=== PATIENT | female | born 1950 | race Caucasian/White ===

== ENCOUNTER 2018-02-17 11:10 | Emergency (ER) | payer MEDICARE ==
[~2018-02-17] VITALS: Ht 160 cm; Wt 65.0 kg
[2018-02-17 13:23] VITALS: BP 184/95
== END 2018-02-17 13:25 | disposition home or self-care (01) ==
LOC: ER 11:11
DX: S06.0X1A Concussion with loss of consciousness of 30 minutes or less, initial encounter (principal); Z88.6 Allergy status to analgesic agent; Z88.0 Allergy status to penicillin; W22.8XXA Striking against or struck by other objects, initial encounter; Y93.89 Activity, other specified; Y92.89 Other specified places as the place of occurrence of the external cause; Y99.8 Other external cause status
CPT/HCPCS: 70450; 99284

== ENCOUNTER 2021-06-28 05:33 | Inpatient (IN) | payer OTHER ==
[2021-06-19 11:23] LABS: BASOPHILS # (AUTO) 0.1 X10'3 (0-0.2); BASOPHILS % (AUTO) 1.1 % (0-1); EOSINOPHILS # (AUTO) 0.1 X10'3 (0-0.9); LYMPHOCYTES # (AUTO) 1.9 X10'3 (1.1-4.8); LYMPHOCYTES % (AUTO) 33.4 % (21-51); MEAN CORPUSCULAR HEMOGLOBIN 29.9 PG (27.0-31.0); MEAN CORPUSCULAR HGB CONC 33.2 g/dL (33.0-36.5); MEAN CORPUSCULAR VOLUME 90.1 FL (78-98); MEAN PLATELET VOLUME 8.5 FL (7.4-10.4); MONOCYTES # (AUTO) 0.4 X10'3 (0-0.9); MONOCYTES % (AUTO) 7.1 % (2-12); NEUTROPHILS # (AUTO) 3.2 X10'3 (1.8-7.7); NEUTROPHILS % (AUTO) 56.4 % (42-75); PRE OP HEMATOCRIT 41.8 % (35.0-45.0); PRE OP HEMOGLOBIN 13.9 g/dL (12.0-16.0); PRE OP PLATELET COUNT 274 X10'3 (140-440); RED BLOOD COUNT 4.63 X10'6 (4.20-5.60); RED CELL DISTRIBUTION WIDTH 13.8 % (11.5-14.5)
[2021-06-19 11:42] LABS: ALBUMIN 3.8 G/DL (3.4-5.0); ALBUMIN/GLOBULIN RATIO 1.1 (1.1-1.5); ALKALINE PHOSPHATASE 65 IU/L (46-116); BLOOD UREA NITROGEN 13 MG/DL (7-18); CALCIUM 9.4 MG/DL (8.5-10.1); CHLORIDE 105 MMOL/L (99-107); CREATININE 0.62 MG/DL (0.40-0.90); PRE OP ALT 27 U/L (30-65); PRE OP ANION GAP 9 (8-16); PRE OP AST 19 U/L (10-37); PRE OP BILIRUB, TOTAL 0.7 MG/DL (0.0-1.0); PRE OP GLUCOSE 107 MG/DL (70-104); PRE OP POTASSIUM 4.2 MMOL/L (3.4-5.1); PRE OP SODIUM 141 MMOL/L (135-145); TOTAL CARBON DIOXIDE 27.2 MMOL/L (24-32); TOTAL PROTEIN 7.4 G/DL (6.4-8.2); eGFR > 90 ML/MIN
[2021-06-19 11:47] LABS: CLARITY,URINE CLEAR (Clear); GLUCOSE, URINE NEGATIVE (Neg); KETONES,URINE NEGATIVE (Neg); LEUKOCYTE ESTERASE ,URINE NEGATIVE (Neg); NITRITES, URINE NEGATIVE (Neg); OCCULT BLOOD,URINE TRACE-INTACT (Neg); PH,URINE 6.5 (4.8-8.0); PROTEIN,URINE NEGATIVE (Neg); UROBILINOGEN,URINE 0.2 E.U/dL (0.2-1.0)
[2021-06-19 11:53] LABS: COLOR,URINE STRAW (Yellow); UA COLLECTION TYPE CLN CATCH MIDSTREAM
[2021-06-19 11:54] LABS: BACTERIA,URINE NONE SEEN /HPF (Neg); MUCUS STRANDS NONE SEEN /LPF (Neg); RBC,URINE NONE SEEN /HPF (0-2); SQUAMOUS EPITHELIAL CELL,UR FEW /LPF (FEW); WBC,URINE 0-4 /HPF (0-4)
[2021-06-28] VITALS (10 sets, daily range): BP systolic 130–157; BP diastolic 59–87
[~2021-06-28] VITALS: Ht 157.5 cm; Wt 72.4 kg
[~2021-06-28 05:33] MED LIST: ASPI81TA52 PO; CELE-193 PO; DIPH-681 PO; DOCUMENT DATE & TIME OF BETA-BLOCKER PO ONE; IBUP1CAP11 PO; PROP20TA6 PO; VALA10002 PO; ZOLP5TAB8 PO; cefazolin/dext.iso 2gm/50ml IV ONE; famotidine 20mg tablet PO ONE; tranexamic acid inj. 1,000 MG in 0.7% saline 100 ML PMX IV ONE; vancomycin 1,500 MG in NS 300ml IV soln IV ONE
--- NOTE | 2021-06-28 05:40 | NUR ---
CMS WITHIN NORMAL LIMITS, BILATERAL PEDAL AND RADIAL PULSES STRONG AND PALPABLE. Addendum: 06/28/21 at 0857 by Yoon Medeiros RN Amended: Links added.
[2021-06-28] MEDS: ringers solution, lacted 1,000 ML IV SCH (06:27)
[2021-06-28] MEDS ORDERED: vancomycin 1,000mg inj ONE (07:01)
[2021-06-28] MEDS ORDERED: fentaNYL /PF 50mcg/ml 5ml ampule ONE (07:31)
[2021-06-28] MEDS ORDERED: sevoflurane 250ml liquid IH ONE (07:31)
[2021-06-28] MEDS ORDERED: ondansetron/PF 4mg/2ml inj ONE (07:31)
[2021-06-28] MEDS ORDERED: midazolam 1 mg/ML 2ml injection ONE (07:31)
[2021-06-28] MEDS ORDERED: acetaminophen 1,000mg/100ml IV 100 ML IV PRN (08:45)
[2021-06-28] MEDS ORDERED: ringers solution, lacted 1,000 ML IV SCH (08:45)
[2021-06-28] MEDS ORDERED: hydrALAZINE 20mg/ml inj. IV PRN (08:45)
[2021-06-28] MEDS ORDERED: ondansetron/PF 4mg/2ml inj IV PRN ×2 (08:45→10:45)
[2021-06-28] MEDS ORDERED: morphine 4 MG/ML inj SYRINge IV PRN (08:45)
[2021-06-28] MEDS ORDERED: meperidine/PF 25mg/ml syringe IV PRN ×3 (08:45)
[2021-06-28] MEDS ORDERED: proCHLORperazine 10 MG/2 ml inj IV PRN (08:45)
[2021-06-28] MEDS ORDERED: labetalol 20mg/4ml (5mg/ml) syringe IV PRN (08:45)
[2021-06-28] MEDS ORDERED: morphine 2 MG/ML inj. syringe IV PRN (08:45)
[2021-06-28] MEDS ORDERED: ROPIVAcaine 0.2% (10 MG/5 ML) BOLUS INJECTION INTERSCALE PRN (08:45)
[2021-06-28] MEDS ORDERED: glycopyrrolate 0.2mg/ml inj ONE (10:06)
[2021-06-28] MEDS ORDERED: ROPIVAcaine 0.5% (5mg/ml) 30ml vial ONE (10:06)
[2021-06-28] MEDS ORDERED: neostigmine methylsulfate 1 MG/ML 10ml vial ONE (10:06)
[2021-06-28] MEDS ORDERED: ePHEDrine 50MG/ML INJ. ONE (10:06)
[2021-06-28] MEDS ORDERED: rocuronium 10mg/ml inj IV ONE (10:07)
[2021-06-28] MEDS ORDERED: LIDOcaine 1%/PF 5ML 10 MG/ML VIAL ONE (10:07)
[2021-06-28] MEDS ORDERED: 0.9 % SODIUM CHLORIDE 10 ML VIAL ONE (10:07)
[2021-06-28] MEDS ORDERED: propofol inj 20 ML IV ONE (10:07)
[2021-06-28] MEDS ORDERED: LIDOcaine 2% (20mg/ml) 5ml vial ONE (10:07)
--- NOTE | 2021-06-28 10:19 | NUR ---
Received from OR via ORTHO BED , accompanied by Anesthesiologist GAVINO and report given by Anesthesiolgist. PATIENT WITH 20G PIV IN LEFT HAND RUNNING LR AT 100. DENIES PAIN TO RIGHT SHOULDER. ON Q PUMP SITE PRESENT AND IS CDI. SHOULDER WRAP AND POWDER PACK IN PLACE. PATIENT WITH + RADIAL PULSE PRESENT.SCDS DONNED AND VSS. Addendum: 06/28/21 at 1027 by Jonathan Deng RN, RN Amended: Links added.
[2021-06-28] MEDS: ROPIVAcaine 0.2%/PF PUMP/bolus 545 ML INTERSCALE SCH (10:38)
[2021-06-28] MEDS ORDERED: acetaminophen 325mg tablet PO PRN (10:45)
[2021-06-28] MEDS ORDERED: HYDROmorphone inj. 0.5 MG/0.5 ML DISP.SYRIN IV PRN (10:45)
[2021-06-28] MEDS ORDERED: diphenhydrAMINE 25mg capsule PO PRN ×3 (10:45→11:35)
[2021-06-28] MEDS ORDERED: HYDROmorphone 1 mg/ml syringe IV PRN (10:45)
[2021-06-28] MEDS ORDERED: bisacodyl 10mg suppository rectal RC PRN (10:45)
[2021-06-28] MEDS ORDERED: magnesium hydroxide 30ml (MOM) UD suspension PO PRN (10:45)
[2021-06-28] MEDS: potassium cl 20mEq in 1/2 NS 1,000 ML IV SCH (10:45)
[2021-06-28] MEDS ORDERED: oxyCODONE IR 5mg (immed. release) tablet PO PRN (10:45)
[2021-06-28] MEDS ORDERED: zolpidem 5mg tablet PO PRN (11:35)
--- NOTE | 2021-06-28 11:39 | NUR ---
Report called to receiving nurse. Transferred via ORTHO BED WITH GLASSES ONLY Belongings . Special Issues communicated to receiving nurse MARICRUZ BIANCHI.MARICRUZ PRESENT TO ACCEPT PATIENT AND ASSESS DRESSING TO SHOULDER. VSS. DENIES PAIN. ON 3L O2 VIA NASAL CANNULA. PATIENT IN STABLE CONDITION AND DENIES PAIN AT THIS TIME. CARE ASSUMED BY MARICRUZ BIANCHI. Addendum: 06/28/21 at 1155 by Jonathan Deng RN RN Amended: Links added.
[2021-06-28] MEDS ORDERED: valacyclovir 500mg tablet PO PRN (11:40)
[2021-06-28] MEDS: acetaminophen 325mg tablet PO SCH ×2 (13:08→20:06)
[2021-06-28] MEDS: gabapentin 300mg capsule PO SCH ×2 (13:08→20:10)
[2021-06-28] MEDS ORDERED: tranexamic acid inj. 730 MG in normal saline 100ml IV soln 92.7 ML IV ONE (14:00)
[2021-06-28] MEDS: oxyCODONE IR 5mg (immed. release) tablet PO PRN ×3 (14:57→21:54)
[2021-06-28] MEDS: ceFAZolin/D5W- 1GM premix 50 ML IV SCH ×2 (15:30→23:31)
--- NOTE | 2021-06-28 18:38 | NUR ---
Problems reprioritized. Patient report given, questions answered & plan of care reviewed with Rod BIANCHI.
[2021-06-28] MEDS ORDERED: vancomycin/NS 1 GM ADD-VANTAGE 250 ML IV SCH (20:00)
[2021-06-28] MEDS: sennosides 8.6mg tablet PO SCH ×2 (20:00→20:09)
[2021-06-28] MEDS: celeCOXIB 100mg capsule PO SCH (20:05)
[2021-06-28] MEDS: propranolol 10mg tablet PO SCH (20:06)
[2021-06-29] VITALS: BP 120/54
[2021-06-29] MEDS: potassium cl 20mEq in 1/2 NS 1,000 ML IV SCH ×3 (01:17→09:44)
[2021-06-29] MEDS: acetaminophen 325mg tablet PO SCH ×4 (01:19→21:05)
--- NOTE | 2021-06-29 02:22 | NUR ---
Pt c/o nausea but is refusing Zofran at this time. Thinks her nausea is due to not eating and wanted some applesauce to see if that helped. Told her to hit call light if she changes her mind and would like some Zofran she said "Ok".
[2021-06-29 06:07] LABS: BASOPHILS % (AUTO) 0.3 % (0-1); EOSINOPHILS % (AUTO) 0.1 % (0-6); HEMATOCRIT 33.9 % (35.0-45.0); HEMOGLOBIN 11.2 g/dl (12.0-16.0); LYMPHOCYTES # (AUTO) 1.2 X10'3 (1.1-4.8); LYMPHOCYTES % (AUTO) 10.7 % (21-51); MEAN CORPUSCULAR HEMOGLOBIN 30.1 PG (27.0-31.0); MEAN CORPUSCULAR HGB CONC 33.2 g/dL (33.0-36.5); MEAN CORPUSCULAR VOLUME 90.7 FL (78-98); MEAN PLATELET VOLUME 7.7 FL (7.4-10.4); MONOCYTES # (AUTO) 0.9 X10'3 (0-0.9); NEUTROPHILS # (AUTO) 8.9 X10'3 (1.8-7.7); NEUTROPHILS % (AUTO) 80.9 % (42-75); PLATELET COUNT 214 X10'3 (140-440); RED BLOOD COUNT 3.73 X10'6 (4.20-5.60); RED CELL DISTRIBUTION WIDTH 13.4 % (11.5-14.5)
[2021-06-29 06:32] LABS: ANION GAP 10 (8-16); CHLORIDE 103 MMOL/L (99-107); POTASSIUM 4.4 MMOL/L (3.5-5.1); SODIUM 137 MMOL/L (135-145); TOTAL CARBON DIOXIDE 24.3 MMOL/L (24-32)
--- NOTE | 2021-06-29 06:54 | NUR ---
Resident observed in stable condition, report given to TASH Wilson, for continuation of care.
[2021-06-29] MEDS: celeCOXIB 100mg capsule PO SCH ×2 (07:28→21:01)
[2021-06-29] MEDS: aspirin 325mg tablet PO SCH (07:29)
[2021-06-29] MEDS: gabapentin 300mg capsule PO SCH (07:30)
[2021-06-29] MEDS: propranolol 10mg tablet PO SCH ×2 (07:30→20:00)
[2021-06-29 08:00] VITALS: BP 133/58
[2021-06-29] MEDS ORDERED: aspirin 81mg, enteric-coated 1 TAB TABLET.DR PO SCH (08:00)
[2021-06-29 12:00] VITALS: BP 98/76
[2021-06-29] MEDS ORDERED: HYDROcodone/acetaminophen 10/325mg tab PO PRN ×2 (12:35)
[2021-06-29 13:39] LABS: CLARITY,URINE CLEAR (Clear); COLOR,URINE YELLOW (Yellow); GLUCOSE, URINE NEGATIVE (Neg); KETONES,URINE 15 mg/dl (Neg); LEUKOCYTE ESTERASE ,URINE NEGATIVE (Neg); NITRITES, URINE NEGATIVE (Neg); OCCULT BLOOD,URINE SMALL (Neg); PROTEIN,URINE NEGATIVE (Neg); UROBILINOGEN,URINE 0.2 E.U/dL (0.2-1.0)
[2021-06-29 13:44] LABS: UA COLLECTION TYPE CLN CATCH MIDSTREAM
[2021-06-29 13:45] LABS: BACTERIA,URINE NONE SEEN /HPF (Neg); MUCUS STRANDS FEW /LPF (Neg); SQUAMOUS EPITHELIAL CELL,UR FEW /LPF (FEW); WBC,URINE 0-4 /HPF (0-4)
[2021-06-29] MEDS: oxyCODONE IR 5mg (immed. release) tablet PO PRN (19:09)
[2021-06-29 20:00] VITALS: BP 138/69
[2021-06-29] MEDS ORDERED: celeCOXIB 100mg capsule PO SCH (20:00)
[2021-06-29 21:00] VITALS: BP 116/57
[2021-06-29] MEDS: sennosides 8.6mg tablet PO SCH (21:08)
[2021-06-29] MEDS: ringers solution, lacted 1,000 ML IV SCH (21:24)
[2021-06-30] VITALS: BP 94/46
[2021-06-30 00:30] VITALS: BP 115/58
[2021-06-30] MEDS: acetaminophen 325mg tablet PO SCH ×2 (02:00→07:12)
[2021-06-30 06:31] LABS: BASOPHILS % (AUTO) 0.3 % (0-1); EOSINOPHILS % (AUTO) 0.5 % (0-6); HEMATOCRIT 35.2 % (35.0-45.0); HEMOGLOBIN 11.7 g/dl (12.0-16.0); LYMPHOCYTES # (AUTO) 1.7 X10'3 (1.1-4.8); LYMPHOCYTES % (AUTO) 18.8 % (21-51); MEAN CORPUSCULAR HGB CONC 33.3 g/dL (33.0-36.5); MEAN CORPUSCULAR VOLUME 90.2 FL (78-98); MEAN PLATELET VOLUME 8.3 FL (7.4-10.4); MONOCYTES # (AUTO) 1.1 X10'3 (0-0.9); MONOCYTES % (AUTO) 12.1 % (2-12); NEUTROPHILS # (AUTO) 6.1 X10'3 (1.8-7.7); NEUTROPHILS % (AUTO) 68.3 % (42-75); PLATELET COUNT 197 X10'3 (140-440); RED BLOOD COUNT 3.91 X10'6 (4.20-5.60); RED CELL DISTRIBUTION WIDTH 13.7 % (11.5-14.5)
[2021-06-30] MEDS: celeCOXIB 100mg capsule PO SCH (07:11)
[2021-06-30] MEDS: propranolol 10mg tablet PO SCH (07:13)
[2021-06-30] MEDS: oxyCODONE IR 5mg (immed. release) tablet PO PRN (07:13)
[2021-06-30 08:00] VITALS: BP 162/70
[2021-06-30] MEDS: ROPIVAcaine 0.2%/PF PUMP/bolus 545 ML INTERSCALE SCH (08:45)
[2021-06-30] MEDS: aspirin 325mg tablet PO SCH (08:58)
[2021-06-30] MEDS ORDERED: acetaminophen 325mg tablet PO PRN (10:45)
[2021-06-30] MEDS ORDERED: ASPI-1 PO (12:22)
[2021-06-30] MEDS ORDERED: OXYC-658 PO (12:22)
--- NOTE | 2021-06-30 14:19 | NUR ---
Discharge paperwork reviewed with patient. Surgical care reviewed with patient and and bedside. IV removed, catheter tip intact. OnQ pump sheet sent home. Patient free from injuries.
== END 2021-06-30 14:38 | disposition home or self-care (01) | DRG 483 ==
LOC: PAS 05:33 → EDSTATUS 07:30 → PAS 10:54 → SUR 3N 10:54 → UNDOFXSDCSVC 06-30 10:54 → SUR 3N 06-30 14:38 → PAS 06-30 14:38
PROVIDERS: ADMIT Orthopaedic Surgery; ATTEND Orthopaedic Surgery
PROC: 3E0T3BZ Introduction of Anesthetic Agent into Peripheral Nerves and Plexi, Percutaneous Approach (ICD-10-PCS; 2021-06-28)
PROC: 0RRJ00Z Replacement of Right Shoulder Joint with Reverse Ball and Socket Synthetic Substitute, Open Approach (ICD-10-PCS; principal; 2021-06-28 07:31)
DX: M19.011 Primary osteoarthritis, right shoulder (principal); Z79.899 Other long term (current) drug therapy
CPT/HCPCS: 23472; Z7506; Z7508; 36415; 73020; 76942; 80051; 80053; 81001; 82948; 85025; 87081; 93005; 97530; A4565; A4618; A7000; C1776; G0378; J0690; J1170; J2250; J2405; J2704; J2710; J2795; J3010; J3370; J3480; J3490; J7040; J7120; U0003; U0005

== ENCOUNTER 2024-11-10 12:02 | Emergency (ER) | payer MEDICARE, OTHER ==
[~2024-11-10] VITALS: Ht 157.5 cm; Wt 56.2 kg
[~2024-11-10 12:02] MED LIST changes: +ASPI-1 PO; -ASPI81TA52 PO; -DOCUMENT DATE & TIME OF BETA-BLOCKER PO ONE; +OXYC-658 PO; -cefazolin/dext.iso 2gm/50ml IV ONE; -famotidine 20mg tablet PO ONE; -tranexamic acid inj. 1,000 MG in 0.7% saline 100 ML PMX IV ONE; -vancomycin 1,500 MG in NS 300ml IV soln IV ONE
[2024-11-10 12:12] VITALS: TEMP 98.7
[2024-11-10 12:52] LABS: URINE HCG NEGATIVE (NEG)
[2024-11-10 12:53] LABS: LEUKOCYTE ESTERASE ,URINE NEGATIVE (Neg); NITRITES, URINE NEGATIVE (Neg); OCCULT BLOOD,URINE NEGATIVE (Neg)
[2024-11-10 13:00] LABS: UA COLLECTION TYPE CLN CATCH MIDSTREAM
[2024-11-10 13:02] LABS: SQUAMOUS EPITHELIAL CELL,UR FEW /LPF (FEW)
[2024-11-10 13:03] LABS: MEAN PLATELET VOLUME 8.6 FL (7.4-10.4); RED CELL DISTRIBUTION WIDTH 13.2 % (11.5-14.5)
[2024-11-10 13:15] LABS: CREATININE 1.01 MG/DL (0.40-0.90); TOTAL CARBON DIOXIDE 33.7 MMOL/L (24-32); eCRCL 37 ML/MIN; eGFR 53 ML/MIN
[2024-11-10] MEDS: normal saline 1000ML IV soln IVB ONE (14:15)
--- NOTE | 2024-11-10 14:21 | Physician Documentation ---
History of Present Illness ~ Chief Complaint: Abdominal Pain Stated Complaint: BLADDER PAIN Time Seen by MD: 13:54 Mode of Arrival: POV, Ambulatory HPI This 74-year-old female presents to the ED with a complaint of recurrent cystitis and bladder cramping today. Says she has had subclinical fevers states that she has been taking baking soda to help with her cystitis and lots of water. Says that he does feel that she can empty her bladder. Adds that she has been diagnosed with chronic kidney disease to chronic Advil. Patient complains about bladder pain which she describes as having a spasm like nature. Day of Onset: Nov 10, 2024 Medication Reconciliation Allergies: Coded Allergies: Penicillins (Verified Allergy, Unknown, CHILHOOD ALLERGY, 11/10/24) codeine (Verified Allergy, Unknown, NAUSEA/VOMITING, 11/10/24) Scheduled Aspirin (Aspirin), 1 TAB PO Q24H@0830 Celecoxib* (Celebrex*), 200 MG PO BID, (Reported) Ibuprofen/Diphenhydramine HCl (Ibuprofen Pm Softgel), 1 CAPSULE PO QPM, (Reported) Propranolol Hcl (Propranolol Hcl), 1 TAB PO Q12H, (Reported) Scheduled PRN Diphenhydramine Hcl (Benadryl), 25 MG PO DAILY PRN for allergies, (Reported) Oxycodone Hcl IR* (Oxycodone IR*), 1-2 TAB PO Q4H PRN for pain Valacyclovir HCl (Valtrex), 1 TAB PO DAILY PRN for COLD SORE, (Reported) Zolpidem Tartrate* (Ambien*), 10 MG PO HS PRN for INSOMNIA, (Reported) Past Medical History Past Medical History: Cervical Cancer/Dysplasia Past Surgical History: noncontributory Alcohol Use: None Drug Use: none Lives In: Home Occupation: retired Review of Systems All Other Systems at this time: Reviewed and Negative ROS As stated above in the HPI, otherwise all systems are reviewed and negative. Physical Exam Vital Signs: Temperature: 98.7, Source: Temporal, Heart Rate: 90, Respiratory Rate: 18, BP: 139/91, Pulse Oximetry: 97, Weight: 56.200 Oxygen Flow Rate: 0 Physical Exam General: Alert, no apparent distress. Cardiovascular: Regular rate and rhythm, no murmurs. Gastrointestinal: Soft, nontender, nondistended. Bowels sounds present. tender in bladder region Neurologic: Oriented x4. Psychiatric: Normal mood and affect. Skin: Normal color, warm and dry. No edema, no ecchymosis. Progress Results/Orders Results/Orders Orders - GONZALO GEE MERCHANT PATROLLER Ultrasound Pelvis W/Orwo Dplx (11/10/24 14:22) Completed Orders - GONZALO GEE MERCHANT PATROLLER Normal Saline 1000ml (0.9% Sodium Chlori (11/10/24 14:15) Potassium Cl Sr Tablet (K-Dur Tablet) (11/10/24 14:13) Ultrasound Pelvis W/Orwo Dplx (11/10/24 14:22) Hydrocodone/Apap 10/325 ([place] 10/325mg (11/10/24 15:25) Medications Received in ER Medications (Trade) Dose Ordered Sig/Isaak Route PRN Reason Start Time Stop Time Status Last Admin Dose Admin (K-DUR tablet) 40 meq ONCE STAT PO 11/10/24 14:13 11/10/24 14:21 DC 11/10/24 15:12 40 MEQ Vital Signs 11/10/24 11/10/24 12:12 14:10 Temp 98.7 Pulse 90 Resp 18 18 B/P (MAP) 139/91 Pulse Ox 97 O2 Flow Rate 0 Laboratory Tests Test 11/10/24 12:32 11/10/24 12:35 Urine Specimen Description Cln catch midstream Urine Color Yellow Urine Clarity Slightly cloudy Urine pH 8.0 Urine Specific [employer] 1.010 Urine Protein Negative Urine Glucose (UA) Negative Urine Ketones 15 H Urine Occult Blood Negative Urine Nitrite Negative Urine Bilirubin Negative Urine Urobilinogen 0.2 Urine Leukocyte Esterase Negative Urine RBC 0-2 Urine WBC 0-4 Urine Squamous Epithelial Cells Few Urine Transitional Epithelial Cells Few Urine Bacteria None seen Urine Culture Indicated Not ind Volume Urine Centrifuged 10 ml Urine HCG, Qualitative Negative Urine Comment White Blood Count 12.2 H Red Blood Count 4.17 L Hemoglobin 12.7 Hematocrit 36.9 Mean Corpuscular Volume 88.6 Mean Corpuscular Hemoglobin 30.4 Mean Corpuscular Hemoglobin Concent 34.3 Red Cell Distribution Width 13.2 Platelet Count 284 Mean Platelet Volume 8.6 Neutrophils (%) (Auto) 70.5 Lymphocytes (%) (Auto) 18.8 L Monocytes (%) (Auto) 8.8 Eosinophils (%) (Auto) 1.0 Basophils (%) (Auto) 0.9 Neutrophils # (Auto) 8.6 H Lymphocytes # (Auto) 2.3 Monocytes # (Auto) 1.1 H Eosinophils # (Auto) 0.1 Basophils # (Auto) 0.1 CBC Comment Sodium Level 135 Potassium Level 3.2 L Chloride Level 95 L Carbon Dioxide Level 33.7 H Anion Gap 6 L Blood Urea Nitrogen 10 Creatinine 1.01 H Estimated GFR/1.73 m2 53 BUN/Creatinine Ratio 9.9 L Glucose Level 108 H Calcium Level 9.4 Total Bilirubin 1.6 H Aspartate Amino Transf (AST/SGOT) 17 Alanine Aminotransferase (ALT/SGPT) 17 Alkaline Phosphatase 54 Total Protein 7.2 Albumin 3.6 Globulin 3.6 Albumin/Globulin Ratio 1.0 L Lipase 37 Chemistry Comments Medical Decision Making Findings Patient's laboratory values were overall unremarkable for any signs of infection. Did have minor hypokalemia. Her ultrasound also was unremarkable showed no signs of ovarian pathology no cysts or lesions. Patient continues to complain of spasm like pain from her bladder.. Essentially most of the emergent concerns however I believe that she would benefit from outpatient evaluation particularly urology. Try her on oxybutynin for bladder spasm Urinary Diff Dx:Considerations: Include: AAA, , Aortic dissection, Appendicitis, Bowel obstruction, Cholelithiasis, Choleangitis, DJD, Ectopic , Hepatitis, HNP, Impaction, Intrauterine , Musculoskeletal pain, Ovarian torsion, Pancreatitis, PID, Post-Op complication, Pyelonephritis, Renal failure, Strain, Urinary Obstruction, Urolithiasis, Urinary retention, UTI, Vaginitis, Other Departure Disposition: 01 HOME / SELF CARE / HOMELESS Impression: Primary Impression: Bladder spasms Discharge Instructions: Abdominal Pain, Women Referrals: NO PRIMARY CARE PROVIDER (PCP) Prescriptions Oxybutynin Chloride (Oxybutynin Chloride ER) 15 Mg Tab.er.24 1 TAB PO DAILY for 30 Days, #30 TAB 0 Refills Prov: GONZALO GEE NP 11/10/24 Signature Scribe Signature: gf Attestation: Scribed for Gonzalo Gee Dry Kiln Burner by Gonzalo Deng NP . 11/10/24 15:51 GONZALO GEE NP Nov 10, 2024 14:21
[2024-11-10] MEDS: potassium Cl 20 mEq SR tablet PO STA (15:12)
--- NOTE | 2024-11-10 15:24 | RADIOLOGY REPORT ---
Procedure: US ULTRASOUND PELVIS W/ORWO DPLX [facility] Study Date and Requested Time: 11/10/2024 02:45 PM Study Description: US ULTRASOUND PELVIS W/ORWO DPLX History: bladder pain Comparison: None Technique: Multiple high resolution ward-scale images obtained of the urinary bladder with color Dop pler as . Findings: Limited evaluation of the urinary bladder due to inadequate distention with no masses or significant abnormality noted. Urinary bladder volume of 72 cc. No adjacent masses or fluid collections noted. Impression: Limited evaluation of the urinary bladder due to inadequate distention with no gross abnormalities no maryam. Urinary bladder volume of 72 cc.
[2024-11-10] MEDS ORDERED: OXYB15TA19 PO (15:48)
[2024-11-10] MEDS: HYDROcodone/acetaminophen 10/325mg tab PO ONE (16:18)
[2024-11-10 16:22] VITALS: BP 124/87; PULSE 80; RESP 12; O2SAT 98
== END 2024-11-10 16:27 | disposition home or self-care (01) ==
LOC: ER 12:03
DX: N32.89 Other specified disorders of bladder (principal); Z85.41 Personal history of malignant neoplasm of cervix uteri; Z88.0 Allergy status to penicillin; Z88.5 Allergy status to narcotic agent; Z79.899 Other long term (current) drug therapy; Z79.82 Long term (current) use of aspirin
CPT/HCPCS: 36415; 76857; 80053; 81001; 81025; 83690; 85025; 99284; J7030

== ENCOUNTER 2024-12-13 07:32 | Emergency (ER) | payer MEDICARE ==
[~2024-12-13] VITALS: Ht 157.5 cm; Wt 55.8 kg
[~2024-12-13 07:32] MED LIST changes: +OXYB15TA19 PO
[2024-12-13 09:06] LABS: LEUKOCYTE ESTERASE ,URINE TRACE (Neg); NITRITES, URINE NEGATIVE (Neg); OCCULT BLOOD,URINE TRACE-INTACT (Neg)
[2024-12-13 09:10] LABS: UA COLLECTION TYPE CLN CATCH MIDSTREAM
[2024-12-13 09:11] LABS: MUCUS STRANDS FEW /LPF (Neg); SQUAMOUS EPITHELIAL CELL,UR FEW /LPF (FEW)
--- NOTE | 2024-12-13 09:15 | Physician Documentation ---
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 Denies any injury. States that she also feels as though she has bladder pain. Denies any fevers. Denies any nausea vomit Medication Reconciliation Allergies: Coded Allergies: Penicillins (Verified Allergy, Unknown, CHILHOOD ALLERGY, 12/13/24) codeine (Verified Allergy, Unknown, NAUSEA/VOMITING, 12/13/24) Scheduled Aspirin (Aspirin), 1 TAB PO Q24H@0830 Celecoxib* (Celebrex*), 200 MG PO BID, (Reported) Ciprofloxacin HCl (Ciprofloxacin HCl), 1 TAB PO Q12H Ibuprofen/Diphenhydramine HCl (Ibuprofen Pm Softgel), 1 CAPSULE PO QPM, (Reported) Oxybutynin Chloride (Oxybutynin Chloride ER), 1 TAB PO DAILY Propranolol Hcl (Propranolol Hcl), 1 TAB PO Q12H, (Reported) Scheduled PRN Diphenhydramine Hcl (Benadryl), 25 MG PO DAILY PRN for allergies, (Reported) Oxycodone Hcl IR* (Oxycodone IR*), 1-2 TAB PO Q4H PRN for pain Valacyclovir HCl (Valtrex), 1 TAB PO DAILY PRN for COLD SORE, (Reported) Zolpidem Tartrate* (Ambien*), 10 MG PO HS PRN for INSOMNIA, (Reported) Past Medical History Past Medical History: Cervical Cancer/Dysplasia Past Surgical History: noncontributory Alcohol Use: None Drug Use: none Lives In: Home Occupation: retired Review of Systems All Other Systems at this time: Reviewed and Negative Physical Exam Physical Exam Vital Signs: Temperature: 97.3, Source: Temporal, Heart Rate: 70, Respiratory Rate: 18, BP: 163/66, Pulse Oximetry: 97, Weight: 55.800 Oxygen Flow Rate: 0 Physical Exam General: Alert, no apparent distress. HEENT: PERRL, EOMI, no injection, moist mucous membranes. Neck: Full range of motion. Respiratory: Lungs clear, no respiratory distress. Chest: No accessory muscle use. Cardiovascular: Regular rate and rhythm, no murmurs. Gastrointestinal: Soft, nontender, nondistended. Bowels sounds present. Extremities: Normal range of motion, no deformity. Neurologic: Oriented x4. Psychiatric: Normal mood and affect. Skin: Normal color, warm and dry. No edema, no ecchymosis. Progress Results/Orders Results/Orders Orders - GONZALO GEE COUNSELING AIDE Ct Abdomen Pelvis (12/13/24 10:40) Completed Orders - GONZALO GEE COUNSELING AIDE Ketorolac Trometh 30mg/Ml Vial (Toradol (12/13/24 10:35) Cyclobenzaprine Tablet (Flexeril Tablet) (12/13/24 10:35) Ct Abdomen Pelvis (12/13/24 10:40) Morphine 4mg/Ml Inj. (Morphine Inj.) (12/13/24 11:55) Medications Received in ER Medications (Trade) Dose Ordered Sig/Isaak Route PRN Reason Start Time Stop Time Status Last Admin Dose Admin (Toradol inj. 30mg/ml) 30 mg ONCE ONCE IM 12/13/24 10:35 12/13/24 10:40 DC 12/13/24 11:09 30 MG (Flexeril tablet) 10 mg ONCE ONCE PO 12/13/24 10:35 12/13/24 10:36 DC 12/13/24 11:09 10 MG (morphine inj.) 4 mg ONCE ONCE IM 12/13/24 11:55 12/13/24 11:56 DC 12/13/24 12:16 4 MG Vital Signs 12/13/24 12/13/24 12/13/24 12/13/24 08:01 08:44 11:00 11:09 Temp 97.3 97.3 Pulse 70 62 Resp 18 18 18 15 B/P (MAP) 163/66 146/102 (117) Pulse Ox 97 98 O2 Flow Rate 0 0 12/13/24 12/13/24 11:46 12:16 Resp 15 18 Laboratory Tests Test 12/13/24 08:20 12/13/24 09:27 Urine Specimen Description Cln catch midstream Urine Color Yellow Urine Clarity Clear Urine pH 6.0 Urine Specific [employer] 1.015 Urine Protein Negative Urine Glucose (UA) Negative Urine Ketones 40 H Urine Occult Blood Trace-intact Urine Nitrite Negative Urine Bilirubin Negative Urine Urobilinogen 0.2 Urine Leukocyte Esterase Trace H Urine RBC 0-2 Urine WBC 0-4 Urine Squamous Epithelial Cells Few Urine Transitional Epithelial Cells Few Urine Bacteria Few Urine Mucus Few Urine Culture Indicated Indicated Volume Urine Centrifuged 4 ml Urine Comment Low volume White Blood Count 8.1 Red Blood Count 3.96 L Hemoglobin 11.9 L Hematocrit 35.5 Mean Corpuscular Volume 89.7 Mean Corpuscular Hemoglobin 29.9 Mean Corpuscular Hemoglobin Concent 33.4 Red Cell Distribution Width 13.7 Platelet Count 200 Mean Platelet Volume 8.4 Neutrophils (%) (Auto) 66.9 Lymphocytes (%) (Auto) 23.3 Monocytes (%) (Auto) 7.9 Eosinophils (%) (Auto) 1.0 Basophils (%) (Auto) 0.9 Neutrophils # (Auto) 5.4 Lymphocytes # (Auto) 1.9 Monocytes # (Auto) 0.6 Eosinophils # (Auto) 0.1 Basophils # (Auto) 0.1 CBC Comment Sodium Level 138 Potassium Level 3.8 Chloride Level 102 Carbon Dioxide Level 29.0 Anion Gap 7 L Blood Urea Nitrogen 10 Creatinine 0.78 Estimated GFR/1.73 m2 72 BUN/Creatinine Ratio 12.8 Glucose Level 101 Calcium Level 9.2 Total Bilirubin 1.2 H Aspartate Amino Transf (AST/SGOT) 14 Alanine Aminotransferase (ALT/SGPT) 16 Alkaline Phosphatase 45 L Total Protein 6.7 Albumin 3.3 L Globulin 3.4 Albumin/Globulin Ratio 1.0 L Lipase 42 Chemistry Comments Microbiology Date/Time Source Procedure Growth Status 12/13/24 09:11 Urine Clean Catch Midstream Urine Culture - Preliminary Culture received. Resulted Medical Decision Making Findings Came back with a positive CT finding of acute uncomplicated diverticulitis. This would explain the pain that she is reporting on the anterior her back pain is likely secondary to disc did not degeneration which has already been previously established. We will start the patient on Augmentin for the to treat the diverticulitis and discharge her for outpatient therapy Differential Dx:Considerations: Include: AAA, Aortic dissection, , Appendicitis, Bowel obstruction, Cholelithiasis, Cholangitis, DJD, Ectopic , Fracture, Hepatitis, HNP, Musculoskeletal pain, Pancreatitis, Pyelonephritis, Strain, Urinary obstruction, Urolithiasis, Ovarian torsion, Other Departure Impression: Primary Impression: Diverticulitis Condition: Stable Discharge Instructions: Diverticulitis, [id number] Referrals: NO PRIMARY CARE PROVIDER (PCP) Prescriptions Hydrocodone Bit/Acetaminophen 5/325 MG ([place] 5/325 MG) 5 Mg/325 Mg Tablet 1 TAB PO Q6H PRN for pain, #14 TAB Prov: GONZALO GEE COUNSELING AIDE 12/13/24 Ciprofloxacin HCl (Ciprofloxacin HCl) 500 Mg Tablet 1 TAB PO Q12H for 10 Days, #20 TAB Prov: GONZALO GEE NP 12/13/24 Education Educated: Patient Educated regarding: diagnosis Signature Scribe Signature: v Attestation: Scribed for Gonzalo Gee Bit Grinder by Gonzalo Deng NP . 12/13/24 13:16 GONZALO GEE NP Dec 13, 2024 09:15
[2024-12-13 09:50] LABS: MEAN PLATELET VOLUME 8.4 FL (7.4-10.4); RED CELL DISTRIBUTION WIDTH 13.7 % (11.5-14.5)
[2024-12-13 10:15] LABS: CREATININE 0.78 MG/DL (0.40-0.90); TOTAL CARBON DIOXIDE 29.0 MMOL/L (24-32); eCRCL 49 ML/MIN; eGFR 72 ML/MIN
[2024-12-13] MEDS: ketorolac trometh 30MG/ML vial 30 MG/ML VIAL IM ONE (11:09)
[2024-12-13] MEDS: morphine 4 MG/ML inj SYRINge IM ONE (12:16)
--- NOTE | 2024-12-13 13:07 | RADIOLOGY REPORT ---
CLINICAL INFORMATION: 74 years old, Female; BACK AND ABD PAIN. TECHNIQUE: Axial CT images of the abdomen and pelvis were obtained without IV contrast. Coronal and s agittal reformatted images were obtained, reviewed, and stored. Evaluation of the parenchymal organs is limited without IV contrast. Evaluation of the bowel and mesentery is limited without oral contras t. All CT scans at this medical facility are performed using dose modulation techniques as appropriat e to a performed exam including the following: Automated exposure control was utilized; adjustment of the MA and/or KV according to patient size; and use of iterative reconstruction technique. CTDIvol = 12.6 mGy DLP = 577.63 mGy-cm COMPARISON: None FINDINGS: Lung bases: Lung bases are clear. Liver: Grossly unremarkable in its noncontrast enhanced appearance. No abnormal density or focal lesi on identified. Biliary: No calcified gallstones or biliary ductal dilatation. Spleen: Unremarkable. Pancreas: Grossly unremarkable in its noncontrast enhanced appearance. Adrenal glands: Unremarkable. No mass. Kidneys: No hydronephrosis. No renal or ureteral calculi. Cyst at the inferior pole of the right kidn ey measures up to 2 cm. Aorta/Vascular: Dense arterial calcification. No abdominal aortic aneurysm. Retroperitoneum: No mass or lymphadenopathy. Bowel/mesentery: No small bowel obstruction. No free air or free fluid. Appendix is not visualized. T here are scattered colonic diverticula. Mild to moderate inflammatory stranding adjacent to the proxi mal sigmoid colon, consistent with acute diverticulitis. No evidence of perforation or abscess. Pelvic organs: Grossly unremarkable. Bladder: Mild circumferential thickening of the bladder wall. Abdominal wall: No mass or hernia. Bones: No acute fracture or suspicious intraosseous lesion. Multilevel degenerative disc disease in t he lumbar spine with associated moderate to severe disc space narrowing, endplate sclerosis, and endp late spurring. Multilevel facet hypertrophy with areas of moderate neural foraminal stenosis, greates t at the L4-L5 and L5-S1 levels. IMPRESSION: 1. Findings consistent with acute, uncomplicated diverticulitis involving the proximal sigmoid colon. 2. Mild circumferential thickening of the bladder wall is nonspecific. Correlate clinically to exclu de cystitis. 3. Additional nonacute findings as described above.
[2024-12-13] MEDS ORDERED: CIPR-452 PO (13:18)
[2024-12-13 13:27] VITALS: BP 145/66; PULSE 88; RESP 18; TEMP 97.3; O2SAT 99
[2024-12-13] MEDS ORDERED: HYDR-3965 PO (13:34)
== END 2024-12-13 13:39 | disposition home or self-care (01) ==
LOC: ER 07:33
DX: K57.32 Diverticulitis of large intestine without perforation or abscess without bleeding (principal); Z88.0 Allergy status to penicillin; Z88.5 Allergy status to narcotic agent; Z88.8 Allergy status to other drugs, medicaments and biological substances; Z79.82 Long term (current) use of aspirin
CPT/HCPCS: 36415; 74176; 80053; 81001; 83690; 85025; 87088; 96372; 99285; J1885; J2270

== ENCOUNTER 2025-03-04 13:58 | Emergency (ER) | payer MEDICARE, OTHER ==
[~2025-03-04] VITALS: Ht 157.5 cm; Wt 50.0 kg
[~2025-03-04 13:58] MED LIST changes: +ZOLP5TAB19 PO; -ZOLP5TAB8 PO
[2025-03-04 14:11] VITALS: TEMP 97.8
--- NOTE | 2025-03-04 14:39 | ELECTROCARDIOGRAPH REPORT ---
[facility] Test Date: 2025-03-04 Test Time: 14:37:08 Pat Name: TORRES DEMPSEY Department: [facility] Patient ID: [facility]-[id number] Room: Gender: F Inspector And Clerk: : 1950 Requested By: RADHA FRIEND Order Number: [id number] Reading MD: Dr. Brian Christensen Measurements Intervals [place] Rate: 102 P: 75 UT: 141 QRS: 86 QRSD: 83 T: 23 QT: 307 QTc: 400 Interpretive Statements Sinus tachycardia with irregular rate Probable left atrial enlargement Borderline right axis deviation Baseline wander in lead(s) I,II,aVR,aVL Electronically Signed On 03-04-2025 19:05:[address] Brian Christensen Please click the below link to view image of tracing.
[2025-03-04 14:50] LABS: MEAN PLATELET VOLUME 8.7 FL (7.4-10.4); RED CELL DISTRIBUTION WIDTH 13.6 % (11.5-14.5)
[2025-03-04 14:57] LABS: CREATININE 1.30 MG/DL (0.40-0.90); TOTAL CARBON DIOXIDE 28.2 MMOL/L (24-32); eCRCL 29 ML/MIN; eGFR 40 ML/MIN
[2025-03-04] MEDS: normal saline 1000ML IV soln IVB ONE (15:36)
--- NOTE | 2025-03-04 17:33 | Physician Documentation ---
History of Present Illness ~ Chief Complaint: Dizziness Stated Complaint: LOW BLOOD PRESSURE/WEAKNESS Time Seen by MD: 15:08 OK to notify your PCP?: Yes Primary Medical Doctor: JOSEPH Mode of Arrival: POV, Ambulatory HPI 74-year-old female patient who is ambulatory with a history of Meniere's disease came to the emergency room because of dizziness. She said it isn't go to the point of vertigo. She noticed her heart started racing and felt like he she can not breathe good. She does have nausea but no vomiting no diarrhea. The patient denies chest pain. She does have chronic low back pain and she has been taking tramadol. She was also put on lisinopril 5 mg once a day. No smoking no alcohol usage no drug usage. No fever no chills. Medication Reconciliation Allergies: Coded Allergies: Penicillins (Verified Allergy, Unknown, CHILHOOD ALLERGY, 03/04/25) codeine (Verified Allergy, Unknown, NAUSEA/VOMITING, 03/04/25) Scheduled Aspirin (Aspirin), 1 TAB PO Q24H@0830 Celecoxib* (Celebrex*), 200 MG PO BID, (Reported) Ibuprofen/Diphenhydramine HCl (Ibuprofen Pm Softgel), 1 CAPSULE PO QPM, (Reported) Oxybutynin Chloride (Oxybutynin Chloride ER), 1 TAB PO DAILY Propranolol Hcl (Propranolol Hcl), 1 TAB PO Q12H, (Reported) Scheduled PRN Diphenhydramine Hcl (Benadryl), 25 MG PO DAILY PRN for allergies, (Reported) Lorazepam (Ativan), 1 TAB PO Q12H PRN PRN for anxiety Oxycodone Hcl IR* (Oxycodone IR*), 1-2 TAB PO Q4H PRN for pain Valacyclovir HCl (Valtrex), 1 TAB PO DAILY PRN for COLD SORE, (Reported) Zolpidem Tartrate* (Ambien*), 10 MG PO HS PRN for INSOMNIA, (Reported) Past Medical History Past Medical History: Cervical Cancer/Dysplasia Past Surgical History: noncontributory Smoking Status: Former smoker Alcohol Use: None Drug Use: none Lives In: Home Occupation: retired Review of Systems ROS As stated above in the HPI, otherwise all systems are reviewed and negative. Physical Exam Vital Signs: Temperature: 97.8, Source: Temporal, Heart Rate: 73, Respiratory Rate: 16, BP: 101/56, Pulse Oximetry: 98, Weight: 50.000 Oxygen Flow Rate: 0 Physical Exam Reviewed vital signs and they are well within normal range. Const: Not in acute cardiopulmonary distress Head: Atraumatic Eyes: Normal Conjunctiva ENT: Normal External Ears, Nose and Mouth. Dry mucous membrane Neck: Full range of motion. No meningismus Resp: Clear to auscultation bilaterally. Normal work of breathing Cardio: Heart rate is initially 96 per minute and then later 75. Regular rate and rhythm, no murmurs. Skin well perfused Abd: Soft, non-tender, non-distended. Normal bowel sounds. No rebound or guarding Skin: No petechiae or rashes. Warm and dry Back: No midline or flank tenderness Ext: No cyanosis, or edema Neuro: Awake and alert Psych: Normal Mood and Affect Progress Results/Orders Results/Orders Orders - RADHA FRIEND MD Electrocardiogram (03/04/25 14:17) Completed Orders - RADHA FRIEND MD Cbc/Diff (03/04/25 14:17) BMP (03/04/25 14:17) Electrocardiogram (03/04/25 14:17) Normal Saline 1000ml (0.9% Sodium Chlori (03/04/25 15:30) Vital Signs 03/04/25 03/04/25 03/04/25 03/04/25 14:11 15:08 15:08 18:08 Temp 97.8 Pulse 120 73 76 Resp 18 16 16 16 B/P (MAP) 105/69 101/56 (71) 112/60 Pulse Ox 100 98 96 O2 Flow Rate 0 Laboratory Tests Test 03/04/25 14:35 White Blood Count 7.7 Red Blood Count 4.36 Hemoglobin 12.8 Hematocrit 38.0 Mean Corpuscular Volume 87.2 Mean Corpuscular Hemoglobin 29.3 Mean Corpuscular Hemoglobin Concent 33.6 Red Cell Distribution Width 13.6 Platelet Count 280 Mean Platelet Volume 8.7 Neutrophils (%) (Auto) 60.8 Lymphocytes (%) (Auto) 30.6 Monocytes (%) (Auto) 7.2 Eosinophils (%) (Auto) 0.7 Basophils (%) (Auto) 0.7 Neutrophils # (Auto) 4.7 Lymphocytes # (Auto) 2.4 Monocytes # (Auto) 0.6 Eosinophils # (Auto) 0.1 Basophils # (Auto) 0.1 CBC Comment Sodium Level 137 Potassium Level 4.6 Chloride Level 98 L Carbon Dioxide Level 28.2 Anion Gap 11 Blood Urea Nitrogen 37 H Creatinine 1.30 H Estimated GFR/1.73 m2 40 BUN/Creatinine Ratio 28.5 H Glucose Level 106 H Calcium Level 10.0 Albumin 3.9 Chemistry Comments Medical Decision Making Additional information obtaine: family Findings During the physical examination, the findings suggestive of acute life- threatening condition such as JVD, tracheal deviation, acidotic breathing, noisy stridorous breath sounds, pulses paradoxus, muffled heart sounds, unequal breath sounds, abdominal rigidity and rebound tenderness, focal neurological deficits, cool clammy skin, severe hypotension, severe tachycardia or bradycardia are absent. Clinical examination unremarkable except clinical signs of dehydration. ED MD interpretation of EKG done at 14:37 hours shows sinus tachycardia with irregular rate which is sinus arrhythmia and heart rate is 102. Normal axis and normal intervals. No acute ischemic changes. CBC essentially normal. BMP shows BUN and and creatinine is slightly elevated. Patient is hydrated with 1 L of normal saline and she felt a lot better and her heart rate went down to 76. As she is much better I will discharge her home with instruction to keep herself well hydrated. Patient does not have identifiable emergent medical condition that warrants inpatient medical care at this time. The patient is deemed safe for discharge with outpatient follow up. DISCLAIMER Inadvertent spelling and grammatical errors,inadvertent laborer [employer] errors,syntax errors, grammatical errors, and spelling errors are likely due to EMR/dictation software use and do not reflect on the overall quality of patient care. Note that the electronic time recorded on this note does not necessarily reflect the actual time of the patient encounter. Differential Dx:Considerations: Include: dehydration, dysrhythmia, electrolyte imbalance, labyrinthitis, Meniere's disease Departure Disposition: 01 HOME / SELF CARE / HOMELESS Impression: Primary Impression: Dehydration Additional Impressions: Dizziness Meniere disease Condition: Stable Discharge Instructions: Dizziness Additional Instructions: Thank you for coming to our Emergency Department today. Drink lots of water to keep yourself well hydrated. Please ask your nurse or provider if you have questions about your care today and do not leave until all your questions have been answered. Please use any medications given as directed and follow-up with your doctor (or the doctor you were referred to) in the next 1-3 days. Your primary care doctor can help to coordinate outpatient specialty care and provide authorization for specialty referral as needed. If you do not have a primary care doctor you may follow up at a [facility]. You may also use motrin and tylenol as needed for fever and/or pain unless instructed otherwise by your provider or nurse. Indications for more urgent follow-up have been discussed, but you may return to the Emergency Department at ANY time for any worrisome or worsening symptoms. [facility] Facilities: [facility] Facilities: [facility]: [facility] [place] Address:[address] [place] [address] [facility]: [place] Address:[address] [place] [id number] [facility]: [facility] Address:[address] [place] [address] [facility] Address:[address] [place] [address] Registration Billing Pharmacy Referrals [facility] Address:[address] [place] [address] Referrals: NO PRIMARY CARE PROVIDER (PCP) Prescriptions Lorazepam (Ativan) 0.5 Mg Tablet 1 TAB PO Q12H PRN PRN for anxiety, #20 TAB 0 Refills Prov: RADHA FRIEND MD 03/04/25 Education Educated: Patient Educated regarding: diagnosis, treatment, prognosis, need for follow up Signature Scribe Signature: x Attestation: RADHA Kee MD Mar 04, 2025 17:33
[2025-03-04] MEDS ORDERED: LORA-268 PO (17:38)
[2025-03-04 18:08] VITALS: BP 112/60; PULSE 76; RESP 16; O2SAT 96
== END 2025-03-04 18:10 | disposition home or self-care (01) ==
LOC: ER 13:58
DX: E86.0 Dehydration (principal); H81.03 Meniere's disease, bilateral; M54.50 Low back pain, unspecified; Z87.891 Personal history of nicotine dependence; Z88.0 Allergy status to penicillin; Z88.5 Allergy status to narcotic agent; Z88.8 Allergy status to other drugs, medicaments and biological substances
CPT/HCPCS: 36415; 80048; 85025; 93005; 96360; 99284; J7030